=== PATIENT | male | born 1970 | race African-American/Black ===

== ENCOUNTER 2017-11-17 20:39 | Emergency (ER) | payer OTHER ==
[~2017-11-17] VITALS: Ht 182.9 cm; Wt 105.0 kg
[2017-11-17] MEDS ORDERED: LISI2.5T3 PO (21:47)
[2017-11-17 21:51] VITALS: BP 210/135; PULSE 75; RESP 16; TEMP 97.8; O2SAT 98
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
[2017-11-17] MEDS ORDERED: ACETAMINOPHEN/HYDROcodone 325 MG/5 MG TAB PO ONE (23:15)
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
== END 2017-11-18 01:58 | disposition home or self-care (01) ==
LOC: NEPE 20:39
DX: S09.90XA Unspecified injury of head, initial encounter (principal); M54.2 Cervicalgia; V89.2XXA Person injured in unspecified motor-vehicle accident, traffic, initial encounter; I10 Essential (primary) hypertension; Z72.0 Tobacco use
CPT/HCPCS: 70450; 72125; 73503; 99285

== ENCOUNTER 2017-12-21 12:31 | Emergency (ER) | payer SELFPAY ==
[~2017-12-21] VITALS: Ht 182.9 cm; Wt 104.5 kg
[~2017-12-21 12:31] MED LIST: LISI2.5T3 PO
[2017-12-21 12:33] VITALS: BP 205/132; PULSE 75; RESP 18; TEMP 98.4; O2SAT 97
[2017-12-21 13:55] LABS: BASOPHIL # 0.1 TH/MM3 (0-0.2); BASOPHIL % 0.8 % (0.0-2.0); EOSINOPHIL # 0.4 TH/MM3 (0-0.4); EOSINOPHIL % 4.5 % (0.0-4.0); HEMOGLOBIN 16.7 GM/DL (13.0-17.0); LYMPH % 31.9 % (9.0-44.0); LYMPHOCYTE # 2.5 TH/MM3 (1.0-4.8); MEAN CELL VOLUME 92.6 FL (80.0-100.0); MEAN CORPUSCULAR HGB CONC 33.4 % (32.0-36.0); MEAN PLATELET VOLUME 10.1 FL (7.0-11.0); MONO % 11.9 % (0.0-8.0); MONOCYTE # 0.9 TH/MM3 (0-0.9); NEUT % 50.9 % (16.0-70.0); PLATELET COUNT 133 TH/MM3 (150-450); WHITE BLOOD COUNT 7.9 TH/MM3 (4.0-11.0)
[2017-12-21 14:14] LABS: CREATININE 1.49 MG/DL (0.60-1.30)
[2017-12-21 14:15] LABS: BICARBONATE 25.2 MEQ/L (21.0-32.0); CALCIUM 8.6 MG/DL (8.5-10.1)
--- NOTE | 2017-12-21 16:37 | PD ---
HPI Chief Complaint: Hypertension Time Seen by Provider: 16:29 Travel History International Travel<30 days: No Contact w/Intl Traveler<30days: No Traveled to known affect area: No History of Present Illness HPI 47-year-old male states he is needing a shoulder x-ray and when I tried to talk to him to get more history and to ask to have his blood pressure recycled he states he is not here for that and immediately gets up and leaves and will not talk with me further. PFSH Past Medical History Diabetes: No Diminished Hearing: No Hypertension: Yes Social History Alcohol Use: Yes (occasion) Tobacco Use: Yes Allergies-Medications (Allergen,Severity, Reaction): Coded Allergies: No Known Allergies (Unverified , 11/17/17) Reported Meds & Prescriptions Reported Meds & Active Scripts Active Reported Lisinopril 2.5 Mg Tab 2.5 Mg PO DAILY Physical Exam Narrative left before exam Data Data Last Documented VS Vital Signs Date Time Temp Pulse Resp B/P (MAP) Pulse Ox O2 Delivery O2 Flow Rate FiO2 12/21/17 12:33 98.4 75 18 205/132 (156) 97 Room Air Orders Orders Complete Blood Count With Diff (12/21/17 13:02) Basic Metabolic Panel (Bmp) (12/21/17 13:02) Labs Laboratory Tests Test 12/21/17 13:20 White Blood Count 7.9 TH/MM3 Red Blood Count 5.40 MIL/MM3 Hemoglobin 16.7 GM/DL Hematocrit 50.0 % Mean Corpuscular Volume 92.6 FL Mean Corpuscular Hemoglobin 31.0 PG Mean Corpuscular Hemoglobin Concent 33.4 % Red Cell Distribution Width 13.0 % Platelet Count 133 TH/MM3 Mean Platelet Volume 10.1 FL Neutrophils (%) (Auto) 50.9 % Lymphocytes (%) (Auto) 31.9 % Monocytes (%) (Auto) 11.9 % Eosinophils (%) (Auto) 4.5 % Basophils (%) (Auto) 0.8 % Neutrophils # (Auto) 4.0 TH/MM3 Lymphocytes # (Auto) 2.5 TH/MM3 Monocytes # (Auto) 0.9 TH/MM3 Eosinophils # (Auto) 0.4 TH/MM3 Basophils # (Auto) 0.1 TH/MM3 CBC Comment DIFF FINAL Differential Comment Blood Urea Nitrogen 15 MG/DL Creatinine 1.49 MG/DL Random Glucose 83 MG/DL Calcium Level 8.6 MG/DL Sodium Level 138 MEQ/L Potassium Level 4.7 MEQ/L Chloride Level 108 MEQ/L Carbon Dioxide Level 25.2 MEQ/L Anion Gap 5 MEQ/L Estimat Glomerular Filtration Rate 62 ML/MIN MDM Medical Decision Making Medical Screen Exam Complete: Yes Emergency Medical Condition: Yes Differential Diagnosis left Narrative Course left Diagnosis Primary Impression: Hypertension Disposition: 07 AGAINST MEDICAL ADVICE Condition: Stable Vanesa Parham MD Dec 21, 2017 16:37
== END 2017-12-21 16:40 | disposition left against medical advice (07) ==
LOC: NEPC 12:31
DX: I10 Essential (primary) hypertension (principal); Z72.0 Tobacco use; Z79.899 Other long term (current) drug therapy; Z53.21 Procedure and treatment not carried out due to patient leaving prior to being seen by health care provider
CPT/HCPCS: 80048; 85025; 99283